=== PATIENT | female | born 1975 | race Caucasian/White ===

== ENCOUNTER 2016-08-17 09:59 | Outpatient (CLI) | payer OTHER | END 2016-08-17 10:00 | disposition critical access hospital (66) | DX: R51 Headache (principal) | CPT/HCPCS: A0425; A0427 ==

== ENCOUNTER 2016-08-17 10:21 | Emergency (ER) | payer OTHER ==
[2016-08-17] MEDS ORDERED: METOCLOPRAMIDE 10 MG/2 ML VIAL IVP STA (10:33)
[2016-08-17] MEDS ORDERED: SODIUM CHLORIDE 0.9% 1,000 ML IV ONE (10:33)
[2016-08-17] MEDS ORDERED: diphenhydrAMINE INJ 50 MG/ML VIAL IVP STA (10:33)
[2016-08-17] MEDS ORDERED: ACETAMINOPHEN 325 MG TABLET PO STA (10:34)
[2016-08-17] MEDS ORDERED: diphenhydrAMINE INJ 50 MG/ML VIAL ONE (10:38)
[2016-08-17] MEDS ORDERED: ACETAMINOPHEN 325 MG TABLET PO ONE (10:38)
[2016-08-17] MEDS ORDERED: METOCLOPRAMIDE 10 MG/2 ML VIAL IVP ONE (10:38)
== END 2016-08-17 12:41 | disposition home or self-care (01) ==
DX: G43.909 Migraine, unspecified, not intractable, without status migrainosus (principal); O26.892 Other specified pregnancy related conditions, second trimester; Z3A.24 24 weeks gestation of pregnancy
CPT/HCPCS: 81003; 96374; 96375; 99283; 99284; A9270

== ENCOUNTER 2016-11-20 20:37 | Emergency (ER) | payer OTHER ==
[2016-11-20] MEDS ORDERED: ONDANSETRON ODT 4 MG TABLET TL STA (20:55)
--- NOTE | 2016-11-20 20:58 | ED Physician Documentation ---
History of Present Illness - Stated complaint Stated Complaint: L LEG PX,RED SWOLLEN/NAUSEA- S/P DELIVERY - Chief complaint Chief Complaint: Ext Problem - History obtained from History obtained from: Patient - History of Present Illness Timing: Today Pain level max: 5 Pain level now: 5 Improved by: motrin Worsened by: walking - Additonal information Additional information: Patient is a 41-year-old female who presents to the emergency department with left calf swelling and redness. Started today. She delivered her child yesterday. Is on 800 mg of ibuprofen at home for pain. Does have a known varicose vein in the posterior aspect of the left calf. No fevers. No chest pain. No shortness of breath. No headache. Does have mild nausea Review of Systems Constitutional: denies: Fever, Chills Throat: denies: Sore throat Cardiac: denies: Chest pain / pressure Respiratory: denies: Cough, Wheezing GI: denies: Abdominal Pain, Nausea, Vomiting, Diarrhea Skin: denies: Rash Musculoskeletal: denies: Neck pain, Back pain PD PAST MEDICAL HISTORY - Past Medical History Past Medical History: Yes Cardiovascular: Valve disorder Neuro: Headache/migraine, Fainting - Present Medications Home Medications: Ambulatory Orders Medication Instructions Recorded Confirmed Ibuprofen [Motrin] 800 mg ORAL Q8H 11/20/16 11/20/16 Ibuprofen [Motrin] 800 mg PO Q8H PRN #30 tablet 11/20/16 - Allergies Allergies/Adverse Reactions: Allergies Allergy/AdvReac Type Severity Reaction Status Date / Time No Known Drug Allergies Allergy Verified 11/20/16 20:48 - Social History Does the pt smoke?: No Smoking Status: Never smoker Does the pt drink ETOH?: No Does the pt have substance abuse?: No - Immunizations Immunizations are current?: Yes PD ED PE NORMAL - Vitals Vital signs reviewed: Yes - General General: Alert and oriented X 3, No acute distress - HEENT HEENT: Moist mucous membranes - Neck Neck: Supple, no meningeal sign - Cardiac Cardiac: RRR - Respiratory Respiratory: No respiratory distress, Clear bilaterally - Derm Derm: Warm and dry - Extremities Extremities: Other (L calf - varicose vein posteriorly, posterior medial aspect with slight redness and tenderness. Feels like a superficial vein.) - Neuro Neuro: Alert and oriented X 3 - Psych Psych: Normal mood, Normal affect Results - Vitals Vitals: Vital Signs - 24 hr 07/02/17 07/02/17 20:43 22:36 Temperature 36.8 C Heart Rate 69 65 Respiratory 16 15 Rate Blood Pressure 131/89 H 125/60 O2 Saturation 99 99 Oxygen O2 Source Room air - Rads (name of study) Duplex ultrasound left lower extremity Radiology: Prelim report reviewed, EMP read contemporaneously, See rad report ( No evidence for deep venous thrombosis. There is superficial venous thrombosis within dilated mid calf veins. ) PD MEDICAL DECISION MAKING - ED course Complexity details: reviewed results, re-evaluated patient, considered differential, d/w patient ED course: Patient is a 41-year-old female who presents to the emergency department with left lower extremity swelling and pain. Appears to have superficial venous thrombophlebitis. Has chronic varicose veins in the left lower extremity. Will place on NSAIDs for home, use warm and cool compresses as needed at home and follow-up with her PCP. Patient counseled regarding signs and symptoms for which I believe and urgent re-evaluation would be necessary. Patient with good understanding of and agreement to plan and is comfortable going home at this time This document was made in part using voice recognition software. While efforts are made to proofread this document, sound alike and grammatical errors may occur. Departure - Departure Disposition: 01 Home, Self Care Clinical Impression: Superficial thrombophlebitis Qualifiers: Superficial thrombophlebitis-Involved body area: lower extremity Laterality: left Qualified Code(s): I80.02 - Phlebitis and thrombophlebitis of superficial vessels of left lower extremity Condition: Good Instructions: ED Phlebitis Superficial Follow-Up: your,doctor in 1 week [Other] Prescriptions: Ibuprofen [Motrin] 800 mg PO Q8H PRN #30 tablet PRN Reason: PAIN &/OR FEVER Comments: Continue motrin at home. You can also apply heat and this often helps. Return if you worsen. Discharge Date/Time: 11/20/16 22:39
[2016-11-20] MEDS ORDERED: ONDANSETRON ODT 4 MG TABLET ONE (20:59)
--- NOTE | 2016-11-20 22:17 | Ultrasound Preliminary Report ---
Exam: US Duplex Ext Veins Left IMPRESSION: 1. No evidence for deep venous thrombosis. 2. There is superficial venous thrombosis within dilated mid calf veins. [facility] SITE ID: [id number]
--- NOTE | 2016-11-20 22:19 | Ultrasound Report ---
EXAM: LEFT LOWER EXTREMITY VENOUS ULTRASOUND EXAM DATE: 11/20/2016 09:57 PM. CLINICAL HISTORY: L calf pain, swelling. COMPARISON: None. TECHNIQUE: Real-time sonographic vascular imaging was performed by the manager discovery through the lower extremity utilizing both color-flow and Doppler spectral analysis. Multiple help desk representative static ashkan ges were saved for review. FINDINGS: Common Femoral Vein (CFV): Normal. CFV-GSV Junction: Normal. Profunda Femoral Vein (PFV): Normal. Femoral Vein (FV) Prox: Normal. Femoral Vein (FV) Mid: Normal. Femoral Vein (FV) Dist: Normal. Popliteal Vein: Normal. Posterior Tibial Veins: Normal. Peroneal Veins: Normal. Contralateral Side CFV: Normal. Other: None. IMPRESSION: 1. No evidence for deep venous thrombosis. 2. There is superficial venous thrombosis within dilated mid calf veins. [facility] Referring Provider Line: [phone] SITE ID: [id number]
[2016-11-20 22:39] VITALS: BP 125/60
== END 2016-11-20 22:39 | disposition home or self-care (01) ==
LOC: ED 20:37
DX: O87.0 Superficial thrombophlebitis in the puerperium (principal)
CPT/HCPCS: 93971; 99283; Q0162